=== PATIENT | male | born 1970 | race Two or more races ===

== ENCOUNTER → 2020-06-10 | Outpatient (CLI) | payer OTHER | END | disposition home or self-care (01) | LOC: OFIC 805 14:30 | PROVIDERS: ATTEND Otolaryngology Otology & Neurotology | DX: J01.41 Acute recurrent pansinusitis (principal); J34.89 Other specified disorders of nose and nasal sinuses; J31.0 Chronic rhinitis; H91.8X3 Other specified hearing loss, bilateral ==